=== PATIENT | female | born 1980 | race Caucasian/White ===

== ENCOUNTER 2024-09-17 10:35 | Emergency (ER) | payer BC, SELFPAY ==
--- NOTE | ~2024-09-17 | XR_ITS ---
Clinical Indication: Status post fall PA and lateral views of the chest: Comparison: None Findings: The lungs are clear, without evidence of focal consolidation or pleural effusion. Cardiome diastinal silhouette is within normal limits. There is elevation of the distal right clavicle widenin g of the coracoclavicular distance. Impression: Clear lungs. Grade 3 right AC joint separation. Reviewed, dictated and finalized at location . Impression: Clear lungs. Grade 3 right AC joint separation.
--- NOTE | ~2024-09-17 | CT_ITS ---
History: Fall PROCEDURE: CT cervical spine without intravenous contrast. COMPARISON: None TECHNIQUE: Multiple contiguous axial images of the cervical spine were performed without the administration of i ntravenous contrast. DLP: 342 mGy-cm FINDINGS: Straightening of the normal curvature of the cervical spine is identified, likely muscular in origin. No acute fractures are present. The bilateral lung apices are unremarkable. No soft tissue abnormality is appreciated. The airway is patent. Impression: Straightening of the normal curvature of the cervical spine, likely muscular in origin. No acute fracture. Reviewed, dictated and finalized at location A. Impression: Straightening of the normal curvature of the cervical spine, likely muscular in origin. No acute fracture.
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
--- NOTE | ~2024-09-17 | XR_ITS ---
Right Shoulder Technique: AP and scapular Y views were obtained. Clinical History: Pain Findings: No fracture seen. There is elevation of the distal clavicle with marked widening of the cor acoclavicular and a coracoclavicular distances. Soft tissues are unremarkable. Impression: Grade 3 AC joint separation. No fracture seen. Reviewed, dictated and finalized at location . Impression: Grade 3 AC joint separation. No fracture seen.
--- NOTE | ~2024-09-17 | XR_ITS ---
AP view of the pelvis and AP and lateral views of the left hip Clinical history: Pain Findings: No acute fracture or dislocation is seen. Osseous alignment is anatomic. Bilateral hip and SI joint spaces are preserved. Soft tissues are unremarkable. Impression: No significant abnormality is seen. Reviewed, dictated and finalized at location . Impression: No significant abnormality is seen.
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
--- NOTE | ~2024-09-17 | CT_ITS ---
History: Fall PROCEDURE: CT head without contrast. COMPARISON: None TECHNIQUE: Axial imaging of the head performed from the skull base to the vertex without IV contrast. Sagittal a nd coronal reformations obtained. DLP: 605 mGy-cm FINDINGS: The ventricles are normal in size, shape and position. There is no mass, mass effect or midline shift. There is no abnormal extra-axial fluid collection or intracranial hemorrhage. Visualized paranasal sinuses are clear. The mastoid air cells are well aerated. No acute displaced fractures within the overlying cranium. Impression: No acute intracranial hemorrhage or suspicious mass effect. Reviewed, dictated and finalized at location A. Impression: No acute intracranial hemorrhage or suspicious mass effect.
[2024-09-17 10:40] VITALS: BP 132/85; PULSE 73; RESP 16; TEMP 36.7; O2SAT 100
[2024-09-17] MEDS: MORPHINE SULFATE (*CRX) 4 MG/ML INJ IV PUSH ×2 (11:44→13:15)
[2024-09-17] MEDS: SODIUM CHLORIDE 0.9% IV 1,000 ML 999 ML IV CONT (11:45)
--- OUTSIDE RECORDS SUMMARY | 2024-09-17 11:53 | XMS_ITS | Encounter Summary ---
Author Organization [facility] Address [address] [place] [address] Care Team Providers Care Printed Circuit Boards Beveler Name Role Phone Marguerite Erazo MD Primary Care Provider [phone] Reason for Visit * Reason Comments Med Refill Encounter Details Date Type Department Care Team ([facility] st Contact Info) Description 04/05/2024 Refill [facility] Neurology [address] [phone] Cintia Khan MD [address] [place] [address] Neuropathic pain Social History Tobacco Use Types Packs/Day Years Used Date Smoking Tobacco: Never Passive Smoke Exposure: Never Smokeless Tobacco: Never Alcohol Use Standard Drinks/Week Comments Not Currently 4 (1 standard drink = 0.6 oz pur e alcohol) WEEKLY AUDIT-C Answer Date Recorded Q1: How often do you have a drink containing alc ohol? 2-4 times a month 12/02/2022 Q2: How many drinks containi ng alcohol do you have on a typical day when you are drinking? 1 or 2 12/02/2022 Q3: How often do you have si x or more drinks on one occasion? Never 12/02/2022 PHQ-2 Answer Date Recorded Patient Health Questionnaire-2 Score 0 11/13/2022 Hunger Vital Sign Answer Date Recorded Within the past 12 months, y ou worried that your food would run out before you got the money to buy more. Never true 12/03/19 23 Within the past 12 months, t he food you bought just didn't last and you didn't have money to get more. Never true 12/02/2022 PRAPARE - Transportation Answer Date Re corded In the past 12 months, has l ack of transportation kept you from medical appointments or from getting medications? No 11/09 In the past 12 months, has l ack of transportation kept you from meetings, work, or from getting things needed for daily living? No 12/02/2022 Comments No Sex and Gender Information Value Date Recorded Sex Assigned at Not on file Legal Sex Female 9:52 PM CDT Gender Identity Female 05/09/2021 7:49 AM SEX OFFENDER TREATMENT PROFESSIONAL Sexual Orientation Not on file documented as of this encounter Plan of Treatment Upcoming Encounters Date Type Department Care Team (Late st Contact Info) Description 09/23/2024 2:00 PM CDT Follow-Up [facility] [address] [phone] Jessy George MD [address] [address] 11/24/2024 8:00 AM CDT Office Visit [facility] Neurology [address] [place] [phone] Cintia Khan MD [address] [place] [address] [address] [place] [address] documented as of this encounter Visit Diagnoses Diagnosis Neuropathic pain documented in this encounter Care Teams Printed Circuit Boards Beveler Relationship Specialty Start Date End Date Marguerite Erazo MD 300 [facility], [facility] [address] [place] [address] PCP - General Family Medicine 11/12/22 documented as of this encounter
--- OUTSIDE RECORDS SUMMARY | 2024-09-17 11:53 | XMS_ITS | Encounter Summary ---
Author Organization [facility] Address [address] [place] [address] Care Team Providers Care Mailroom Manager Name Role Phone Marguerite Erazo MD Primary Care Provider [phone] [phone] Encounter Details Date Type Department Care Team (Late st Contact Info) Description 10/09/2023 Orders Only [facility] [address] [place] [phone] Jessy George MD [address] [place] [phone] Social History Tobacco Use Types Packs/Day Years [...] CDT Gender Identity Female 05/09/2021 7:49 AM FLEET MAINTENANCE MANAGER Sexual Orientation Not on file documented as of this encounter Plan of Treatment Upcoming Encounters Date Type Department Care Team (Late st Contact Info) Description 09/23/2024 2:00 PM CDT Follow-Up [facility] [address] [phone] Jessy George MD [address] [address] 11/24/2024 8:00 AM CDT Office Visit [facility] Neurology [address] [place] [phone] Cintia Khan MD [address] [address] documented as of this encounter Visit Diagnoses Not on filedocumented in this encounter Care Teams Mailroom Manager Relationship Specialty Start Date End Date Marguerite Erazo MD 300 [facility], [facility] 100 [place] [address] PCP - General Family Medicine 11/12/22 documented as of this encounter
--- OUTSIDE RECORDS SUMMARY | 2024-09-17 11:53 | XMS_ITS | Encounter Summary ---
Author Organization [facility] al[facility]care Address [address] [place] [address] Care Team Providers Care Desizing Machine Operator Name Role Phone Marguerite Erazo MD Primary Care Provider [phone] [phone] Encounter Details Date Type Department Care Team (Late st Contact Info) Description 12/31/2017 Documentation [facility] [address] [place] [address] Elier Ramirez MD [address] [place] [address] Social History Tobacco Use Types Packs/Day Years Used Date Smoking Tobacco: Never Comments Unknown Sex and Gender Information Value Date Recorded Sex Assigned at Not on file Legal Sex Female 9:52 PM CDT Gender Identity Female 05/09/2021 7:49 AM MECHANICAL FACILITIES TECHNICIAN Sexual Orientation Not on file documented as of this encounter Plan of Treatment Upcoming Encounters Date Type Department Care Team (Late st Contact Info) Description 09/23/2024 2:00 PM CDT Follow-Up [facility] [address] [phone] Jessy George MD [address] [address] 11/24/2024 8:00 AM CDT Office Visit [facility] Medical [facility] Neurology [address] [place] [phone] Cintia Khan MD [address] [place] [address] [address] [place] [address] documented as of this encounter Visit Diagnoses Not on filedocumented in this encounter Additional Health Concerns Infection Onset Date Last Indicated Resolved Time R/O Resp Infection 08/25/2019 08/25/2019 0 11:54 AM CDT R/O COVID-19 08/25/2019 08/25/2019 08/26/2019 3:43 PM CDT R/O COVID-19 01/31/2020 01/31/2020 02/01/2020 8:06 AM MECHANICAL FACILITIES TECHNICIAN R/O COVID-19 02/17/2020 02/17/2020 02/17/2020 1:23 PM MECHANICAL FACILITIES TECHNICIAN PreProcedure Screening COVID-19 05/20/2020 1 05/20/2020 2:32 PM MECHANICAL FACILITIES TECHNICIAN PreProcedure Screening COVID-19 08/02/2020 1 08/02/2020 4:07 PM CDT PreProcedure Screening COVID-19 09/17/2020 1 09/17/2020 5:22 PM CDT R/O COVID-19 01/07/2021 01/07/2021 01/07/2021 9:21 PM CDT R/O COVID-19 01/08/2021 01/08/2021 01/08/2021 1:53 PM CDT R/O COVID-19 06/08/2021 06/08/2021 06/08/2021 7:38 PM CDT R/O COVID-19 11/12/2022 11/12/2022 11/12/2022 9:47 PM CDT documented as of this encounter Care Teams Desizing Machine Operator Relationship Specialty Start Date End Date Marguerite Erazo MD 300 [facility], [address] [place] [address] PCP - General Family Medicine 11/12/22 documented as of this encounter
--- OUTSIDE RECORDS SUMMARY | 2024-09-17 11:53 | XMS_ITS | Encounter Summary ---
Author Organization [facility] althcare Address [address] [place] [address] Care Team Providers Care Fleet Operations Manager Name Role Phone Marguerite Erazo MD Primary Care Provider [phone] Encounter Details Date Type Department Care Team ([facility] st Contact Info) Description 05/12/2024 Orders Only [facility] Medical [facility] Neurology [address] [place] [phone] Cintia Khan MD [address] [place] [address] [address] [place] [address] Neuropathic pain (Primary Dx) Social History Tobacco Use Types Packs/Day Years [...] CDT Gender Identity Female 05/09/2021 7:49 AM TREE CARE FOREMAN Sexual Orientation Not on file documented as of this encounter Plan of Treatment Upcoming Encounters Date Type Department Care Team (Late st Contact Info) Description 09/23/2024 2:00 PM CDT Follow-Up [facility] [address] [phone] Jessy George MD [address] [place] [address] 11/24/2024 8:00 AM CDT Office Visit [facility] Medical [facility] Neurology [address] [place] [phone] Cintia Khan MD [address] [place] [address] documented as of this encounter Visit Diagnoses Diagnosis Neuropathic pain- Primary documented in this encounter Care Teams Fleet Operations Manager Relationship Specialty Start Date End Date Marguerite Erazo MD 300 [facility], [facility] [address] [place] [address] PCP - General Family Medicine 11/12/22 documented as of this encounter
--- OUTSIDE RECORDS SUMMARY | 2024-09-17 11:53 | XMS_ITS | Encounter Summary ---
Author Organization [facility] al[facility]care Address [address] [place] [address] Care Team Providers Care Set Up / Operator Name Role Phone Marguerite Erazo MD Primary Care Provider [phone] Encounter Details Date Type Department Care Team ([facility] st Contact Info) Description 05/16/2023 Orders Only [facility] Medical [facility] Neurology [address] [place] [phone] Cintia Khan MD [address] [place] [address] [address] [place] [address] Neuropathic pain (Primary Dx) Social History Tobacco Use Types Packs/Day Years Used Date Smoking Tobacco: Never Passive Smoke Exposure: Never Smokeless Tobacco: Never Alcohol Use Standard Drinks/Week Comments Yes 4 (1 standard drink = 0.6 oz [...] CDT Gender Identity Female 05/09/2021 7:49 AM RETAIL PARTS PRO Sexual Orientation Not on file documented as of this encounter Plan of Treatment Upcoming Encounters Date Type Department Care Team (Late st Contact Info) Description 09/23/2024 2:00 PM CDT Follow-Up [facility] [address] [phone] Jessy George MD [address] [place] [address] 11/24/2024 8:00 AM CDT Office Visit [facility] Medical Group Neurology [address] [place] [phone] Cintia Khan MD [address] [place] [address] documented as of this encounter Visit Diagnoses Diagnosis Neuropathic pain- Primary documented in this encounter Care Teams Set Up / Operator Relationship Specialty Start Date End Date Marguerite Erazo MD 300 [facility], [facility] 100 [place] [address] PCP - General Family Medicine 11/12/22 documented as of this encounter
--- OUTSIDE RECORDS SUMMARY | 2024-09-17 11:53 | XMS_ITS | Clinical Summary ---
Author Organization [facility] Address [facility] [place] [address] Care Team Providers Care Highway Technician Name Role Phone Marguerite Erazo MD Primary Care Provider [phone] [phone] Allergies Active Allergy Reactions Criticality Noted Date Comments Povidone-Iodine Rash Medium 05/30/2021 Chlorhexidine 04/21/2023 Medications cetirizine HCl (ZYRTEC ORAL) Take 1 tablet by mouth daily Active multivit-min/iron/ folic acid/K (BARIATRIC MULTIVITAMINS ORAL) Take 1 tablet by mouth daily Active omeprazole (PriLOSEC) 20 mg capsule Take 1 capsule (20 mg total) by mouth daily Active ferrous sulfate (IRON ORAL) Take 1 tablet by mouth 2 (two) times a day Active omega 5-wuv-zml-fish oil 1,000 mg (120 mg-180 mg) capsule Take 1 capsule by mouth daily Active pregabalin (LYRICA) 25 mg capsuleIndications :Neuropathic pain Take 1 capsule (25 mg total) by mouth 3 (three) times a day 270 capsule 1 5 11/21/19 25 Active escitalopram (LEXAPRO) 10 mg tablet 5 Active scopolamine (TRANSDERM-SCOP) 1 mg over 3 days patch 3 day 5 Active Active Problems Problem Noted Date Diagnosed Date 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 After getting 325mg ASA and 40mcg sublingual NTG in EMS her chest pain went from a 10-/10. She is currently sitting in the ED with 1/10 discomfort like chest pain and no acute distress. ED: WBC 8.8, hb 12.5/ 38.4, plt 263. Na 140, K 3.7, Cr 0.9, gluc 74, Ca 9.2, AST 93, ALT 37, ALP 59, tbili 0.4. Mg 2. Phos 2.1 low. Hstrop 2.5 > 3. INR 1.2 high/ PT 13.7/ PTT 27, Ddimer 290 nl. CK 1114 elev. CKMB 8.7 elev. BNP 23 nl. EKG- NSR, HR 68, EKG rpt- NSR, early depolarization. Resp Panel neg CXR: No focal consolidation, large pleural effusion, or discernible pneumothorax. Plan Trend CK-MB and CK ECHO Stress Test Nitroglycerin PRN EKG if increased Chest Pain Cardio recs Pain: NTG PRN and Tylenol 650mg Q6 PRN Murmur, cardiac 11/13/2022 Assessment & Plan (11/13/2022 1:05 AM CDT): See chest pain PCOS (polycystic ovarian syndrome) 11/12/2022 Assessment & Plan (11/13/2022 12:56 AM CDT): Started first dose on October 22 for 10 days Began Second dose yesterday Holding home med: Provera 10mg QD Class 3 severe obesity due t o excess calories with serious comorbidity and body mass index (BMI) of 40.0 to 44.9 in adult 09/19/2020 Gastroesophageal reflux disease without esophagi tis 08/15/2020 Overview (08/15/2020): Added automatically from request for surgery [id number] Assessment & Plan (11/13/2022 1:10 AM CDT): Home Med: Prilosec 20mg QD Plan Hold Home med Start Protonix 20mg QD Class 3 severe obesity due t o excess calories without serious comorbidity with body mass index (BMI) of 40.0 to 44.9 in adult 07/13/2020 Overview (07/13/2020): Added automatically from request for surgery [id number] Dyskinesia of gallbladder 05/10/2020 Overview (05/10/2020): Added automatically from request for surgery [id number] Gallbladder problem 05/09/2020 Visit for suture removal 11/26/2019 Status post nasal septoplasty 06/05/2018 Nasal septal deviation 05/04/2018 Overview (05/04/2018): Added automatically from request for surgery [id number] Deviated septum 02/25/2018 Hypertrophy of inferior nasal turbinate 02/26/20 18 Assessment & Plan (02/25/2018 9:25 AM VETERANS SERVICE REPRESENTATIVE): Reviewed CT sinus with patient, tiny 6 mm right anterior ethmoid air cell mucous retention cyst or polyp, rest of sinuses are clear, this would not cause her headaches. Could benefit from septo/ITR to help open nasal airway, would not be able to guarantee cure of facial pain/headaches or nasal drainage. I will have her see dr ramirez to discuss. rec Atrovent as rec by dr godoy for non allergic rhinitis Immunizations Immunization Administration Dates Next Due Influenza 4VAL 3YRS+ 12/22/2019,12/18/2017 Influenza, Injectable, MDCK PF Quad 12/24/2018,1 Influenza, Recombinant Quad Pf 12/08/2020 TD Preservative Free 10/29/2010 Tdap 04/23/2019 Family History Medical History Relation Name Comments Arthritis Father Jus Heart disease Father Jus Hypertension Father Jus Stroke Father Jus Cancer Maternal Grandfather Heart disease Maternal Grandmother Hypertension Maternal Grandmother Hyperlipidemia Mother Maeve Relation Name Status Comments Father Jus Maternal Grandfather Maternal Grandmother Mother Maeve Social History Tobacco Use Types Packs/Day Years Used Date Smoking Tobacco: Never Passive Smoke Exposure: Never Smokeless Tobacco: Never Tobacco Cessation:Counseling Given: No Alcohol Use Standard Drinks/Week Comments Not Currently 0 (1 standard drink = 0.6 oz pur e alcohol) AUDIT-C Answer Date Recorded Q1: How often [...] CDT Gender Identity Female 05/09/2021 7:49 AM VETERANS SERVICE REPRESENTATIVE Sexual Orientation Not on file Last Filed Vital Signs Vital Sign Reading Time Taken Comments Blood Pressure 112/79 05/31/2024 2:50 PM CDT Pulse 46 05/31/2024 1:01 PM CDT Temperature 36.3 C (97.3 F) 05/31/2024 2:20 PM CDT Respiratory Rate 16 05/31/2024 2:50 PM CDT Oxygen Saturation 100% 05/31/2024 2:55 PM CDT Inhaled Oxygen Concentration - - Weight 108 kg (237 lb) 05/31/2024 1:01 PM CDT Height 190.5 cm (6' 3) 05/31/2024 1:01 PM CDT Body Mass Index 29.62 05/31/2024 1:01 PM CDT Plan of Treatment Upcoming Encounters Date Type Department Care Team (Late st Contact Info) Description 09/23/2024 2:00 PM CDT Follow-Up [facility] [address] [place] [address] 1 [place] [phone] Jessy George MD [address] [place] [address] 1 [place] [address] 11/24/2024 8:00 AM CDT Office Visit [facility] Medical Group Neurology 305 [facility] 103 [place] [phone] Cintia Khan MD 305 [facility] 103 [place] [address] Health Maintenance Due Date Last Done Comments CT Colonography 1978 FIT-DNA 1978 FIT 1978 FOBT 1978 Pap Smear 1978 Sigmoidoscopy 1978 MMR Vaccines (1 of 1 - Standard series) 08/07/1979 Varicella Vaccines (1 of 2 - 13+ 2-dose series) 08/07/1991 Hepatitis B Vaccines (1 of 3 - 19+ 3-dose series) 1997 Mammogram 10/05/2024 10/06/2023, 09/08, 05/11/2021, Additional history exists Influenza Vaccine (#1) 2024 , 12/12/2022, 12/14/2021, Additional history exists DTaP,Tdap,and Td Vaccines (2 - Td or Tdap) 04/23/2029 04/23/2019, 10/29/2010 Colonoscopy 05/31/2034 05/31/2024 Colorectal Cancer Screening 05/31/2034 RSV Vaccines and 60 Years or Older (1 - 1-dose 75+ series) 2053 COVID-19 Vaccine Completed 12/23/2023, 07/2022, 11/19/2021, Additional history exists AMB Pneumococcal 0-49 yrs Aged Out No longer eligible based on patient's age to complete this topic HIB Vaccines Aged Out No longer eligi ble based on patient's age to complete this topic HPV Vaccines Aged Out No longer eligi ble based on patient's age to complete this topic Hepatitis A Vaccines Aged Out No long er eligible based on patient's age to complete this topic IPV Vaccines Aged Out No longer eligi ble based on patient's age to complete this topic Meningococcal ACWY Vaccine Aged Out N o longer eligible based on patient's age to complete this topic Meningococcal B Vaccine Aged Out No l onger eligible based on patient's age to complete this topic RSV Vaccines <20 Months Aged Out No l onger eligible based on patient's age to complete this topic Medical Devices Implanted Type Area Trimmer Loader Device Identifier Shelf Expiration Date Model / Serial / Lot Reload Tri-Staple 2.0 B 60 Axt - Sna - [id number] Implanted:Qty : 1 on 09/19/2020 by Jessy George MD at [facility] N/A: Stomach [employer] [id number] 04/09/2023 SIGTRSB6 0AXT / NA / [id number] Reload Tri-Staple 2.0 B 45 Axt - Sna - [id number] Implanted:Qty : 1 on 09/19/2020 by Jessy George MD at [facility] N/A: Stomach [employer] [id number] 05/08/2023 SIGTRSB4 5AXT / NA / [id number] Reload Tri-Staple 2.0 B 60 Amt - Sna - [id number] Implanted:Qty : 1 on 09/19/2020 by Jessy George MD at [facility] N/A: Stomach [employer] COVID[employer] [id number] 04/09/2023 SIGTRSB6 0AMT / NA / [id number] Reload Tri-Staple 2.0 B 60 Amt - Sn/A - [id number] Implanted:Qty : 1 on 09/19/2020 by Jessy George MD at [facility] N/A: Stomach [employer] COVID[employer] [id number] 02/06/2022 SIGTRSB6 0AMT / N/A / [id number] Reload Tri-Staple 2.0 B 45 Amt - Sn/A - [id number] Implanted:Qty : 1 on 09/19/2020 by Jessy George MD at [facility] N/A: Stomach [employer] [id number] 01/07/2021 SIGTRSB4 5AMT / N/A / [id number] Stapler Entact Septal 3pack - Sna - [id number] Implanted:Qty : 1 on 05/28/2018 by Elier Ramirez MD at [facility] [place] and Clips Left: Nose [employer] 03/17/2021 [id number] / NA / [id number] Clip Retail Shift Manager Endo Clip 10mm - Sna - [id number] Implanted:Qty : 1 on 05/22/2020 by Anthony Shannon MD at [facility] [place] and Clips N/A: Bile Duct [employer] 09/06/2024 [id number] / NA / [id number] Clip Hemolok Med/Lg - Sna - [id number] Implanted:Qty : 1 on 09/19/2020 by Jessy George MD at [facility] [place] and Clips N/A: Abdomen WECK [id number] 07/25/2024 [id number] / NA / [id number] Procedures Procedure Name Priority Date/Time Associated Diagnosis Comments BI SCREENING BILATERAL Routine 10/06/2023 10:59 AM CDT Breast cancer screening by mammogram from Last 3 Months or Most Recently Relevant to Health Maintenance Results * Bilateral digital screening mammogram (10/06/2023 10:59 AM CDT) Anatomical Region Laterality Modality Breast Bilateral Mammography Narrative 10/06/2023 3:33 PM CDT EXAMINATION(S) PERFORMED Patient is seen for Bilateral digital screening mammogram. Study was evaluated with a computer aided detection (CAD) system. INDICATIONS Sanaz Rosario is a 43 y.o. female and is being seen for Breast cancer screening by mammogram. No known family history of breast cancer. COMPARISON TO PREVIOUS EXAMINATION(S) Compared to: 10/01/2022 Bilateral digital screening mammogram and 05/11/2021 Bilateral digital screening mammogram FINDINGS There are scattered areas of fibroglandular density. Right There is no evidence of suspicious masses, calcifications, or other abnormal findings in the right breast. Left There is no evidence of suspicious masses, calcifications, or other abnormal findings in the left breast. IMPRESSION Right breast assessment: Negative. Left breast assessment: Negative. Routine Screening Mammogram in 1 Yr is recommended for both breasts. Overall BI-RADS category: 1 - Negative us Marguerite Erazo MD IMG BI PROCEDURES Final R esult from Last 3 Months or Most Recently Relevant to Health Maintenance Insurance [employer] Advance Directives For more information, please contact: [phone] * Full Code (Latest Code Status on File) Date Activated Date Inactivated Comments 05/31/2024 12:18 PM 05/31/2024 5:01 PM * Full Code Date Activated Date Inactivated Comments 12/10/2022 7:22 AM 12/10/2022 12:28 PM * Full Code Date Activated Date Inactivated Comments 11/13/2022 1:05 AM 11/13/2022 8:34 PM * Full Code Date Activated Date Inactivated Comments 09/19/2020 12:05 PM 09/20/2020 6:21 PM * Full Code Date Activated Date Inactivated Comments 08/04/2020 7:11 AM 08/04/2020 12:[address] Relationship Specialty Start Date End Date Marguerite Erazo MD [address] [place] [address], [address] [place] [address] PCP - General Family Medicine 11/12/22
--- OUTSIDE RECORDS SUMMARY | 2024-09-17 11:53 | XMS_ITS | Clinical Summary ---
Author Organization [facility] Address [facility] [place] [address] Care Team Providers Care Photogrammetric Technician Name Role Phone JamipaulanaCaleb phillips Primary Care Provider [phone] Medications omeprazole 20 MG capsule Take 20 mg by mouth daily. Active cetirizine 10 MG tablet Take 10 mg by mouth daily. Active Active Problems No known active problems Social History Tobacco Use Types Packs/Day Years Used Date Smoking Tobacco: Never Smokeless Tobacco: Never Alcohol Use Standard Drinks/Week Comments Yes 0 (1 standard drink = 0.6 oz pur e alcohol) Comments Unknown Sex and Gender Information Value Date Recorded Sex Assigned at Not on file Legal Sex Female 8:19 AM CDT Gender Identity Not on file Sexual Orientation Not on file Last Filed Vital Signs Vital Sign Reading Time Taken Comments Blood Pressure 112/68 07/16/2021 3:01 PM CDT Pulse 61 07/16/2021 3:01 PM CDT Temperature - - Respiratory Rate - - Oxygen Saturation 99% 07/16/2021 3:01 PM CDT Inhaled Oxygen Concentration - - Weight 107.7 kg (237 lb 6.4 oz) 07/16/2021 3:01 PM CDT Height 188 cm (6' 2) 07/16/2021 3:01 PM CDT Body Mass Index 30.48 07/16/2021 3:01 PM CDT Plan of Treatment Health Maintenance Due Date Last Done Comments Cervical Cancer Screening Pa p Smear (Age 30 to 64) Every 3 Years 1978 Colorectal Cancer Screening Colonoscopy (10 Years) 1978 Annual Physical 1981 Hepatitis C 1996 Hepatitis B Vaccines (1 of 3 - 19+ 3-dose series) 1997 Cervical Cancer Screening Pa p with HPV Testing (Age 30 to 64) Every 5 Years 2008 Cervical Cancer Screening wi th HPV 2008 Mammogram Screening 2018 COVID-19 Vaccine (4 - 2023-2 5 season) 2023 11/21/2020, 05/24/2020, 05/01/2020 DTaP, Tdap and Td Vaccines ( 2 - Td or Tdap) 04/23/2029 04/23/2019, 10/29/2010 Meningococcal B Vaccine Aged Out No l onger eligible based on patient's age to complete this topic Meningococcal Vaccine Aged Out No josselyn patria eligible based on patient's age to complete this topic Pneumococcal Vaccine: Pediatrics (0 to 5 Years) and At-Risk Patients (6 to 49 Years) Aged Out No longer eligible b ased on patient's age to complete this topic RSV Immunizations Under 20 Months Aged Out No longer eligible b ased on patient's age to complete this topic Insurance Care Teams Photogrammetric Technician Relationship Specialty Start Date End Date Caleb Barrera DO [address] [place] [address] PCP - General FAMILY PRACTICE 07/16/21
--- OUTSIDE RECORDS SUMMARY | 2024-09-17 11:53 | XMS_ITS | Encounter Summary ---
Author Organization [facility] Address [address] [place] [address] Care Team Providers Care Scrap Piler Name Role Phone Marguerite Erazo MD Primary Care Provider [phone] Encounter Details Date Type Department Care Team (Late Contact Info) Description 04/11/2020 Documentation [facility] Medical [facility] General Surgery 305 [facility] [address] [place] [phone] Caleb Barrera DO [facility] 305 [facility] [address] [place] [address] Social History Tobacco Use Types Packs/Day Years Used Date Smoking Tobacco: Never Smokeless Tobacco: Never Alcohol Use Standard Drinks/Week Comments Yes 4 (1 standard drink = 0.6 oz pur e alcohol) WEEKLY AUDIT-C Answer Date Recorded Frequency of Alcohol Consumption 2-4 times a fri02/25/2018 Average Number of Drinks 1 or 2 018 Frequency of Binge Drinking Never 02/07 Comments No Sex and Gender Information Value Date Recorded Sex Assigned at Not on file Legal Sex Female 9:52 PM CDT Gender Identity Female 05/09/2021 7:49 AM WHOLESALER Sexual Orientation Not on file documented as of this encounter Plan of Treatment Upcoming Encounters Date Type Department Care Team (Late Contact Info) Description 09/23/2024 2:00 PM CDT Follow-Up [facility] Weight Loss [address] [phone] Jessy George MD [address] [place] [address] 1 [place] [address] 11/24/2024 8:00 AM CDT Office Visit [facility] Neurology 305 [facility] [address] [place] [phone] Cintia Khan MD 305 [facility] [address] [place] [address] documented as of this encounter Visit Diagnoses Not on filedocumented in this encounter Additional Health Concerns Infection Onset Date Last Indicated Resolved Time PreProcedure Screening COVID-19 05/20/2020 05/20/2020 2:32 PM WHOLESALER PreProcedure Screening COVID-19 08/02/2020 08/02/2020 4:07 PM CDT PreProcedure Screening COVID-19 09/17/2020 09/17/2020 5:22 PM CDT R/O COVID-19 01/07/2021 01/07/2021 01/07/2021 9:21 PM CDT R/O COVID-19 01/08/2021 01/08/2021 01/08/2021 1:53 PM CDT R/O COVID-19 06/08/2021 06/08/2021 06/08/2021 7:38 PM CDT R/O COVID-19 11/12/2022 11/12/2022 11/12/2022 9:47 PM CDT documented as of this encounter Care Teams Scrap Piler Relationship Specialty Start Date End Date Marguerite Erazo MD 300 [facility] [address] [place] [address] PCP - General Family Medicine 11/12/22 documented as of this encounter
--- OUTSIDE RECORDS SUMMARY | 2024-09-17 11:53 | XMS_ITS | Encounter Summary ---
Author Organization [facility] Address [address] [place] [address] Care Team Providers Care Margin Clerk Name Role Phone Marguerite Erazo MD Primary Care Provider [phone] Encounter Details Date Type Department Care Team (Late Contact Info) Description 05/03/2020 Orders Only [facility] Colorectal Surgery [address] 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 Sexual Orientation Not on file documented as of this encounter Plan of Treatment Upcoming Encounters Date Type Department Care Team (Late st Contact Info) Description 09/23/2024 2:00 PM CDT Follow-Up [facility] [address] [place] [phone] Jessy George MD [address] [address] 11/24/2024 8:00 AM CDT Office Visit [facility] Medical [facility] Neurology 305 [facility] 103 [place] [address] Cintia Khan MD 305 [facility] 103 [place] [address] documented as of this encounter Visit Diagnoses Not on filedocumented in this encounter Additional Health Concerns Infection Onset Date Last Indicated Resolved Time PreProcedure Screening COVID-19 05/20/2020 05/20/2020 2:32 PM DIGITAL MARKETING ASSISTANT PreProcedure Screening COVID-19 08/02/2020 08/02/2020 4:07 PM CDT PreProcedure Screening COVID-19 09/17/2020 09/17/2020 5:22 PM CDT R/O COVID-19 01/07/2021 01/07/2021 01/07/2021 9:21 PM CDT R/O COVID-19 01/08/2021 01/08/2021 01/08/2021 1:53 PM CDT R/O COVID-19 06/08/2021 06/08/2021 06/08/2021 7:38 PM CDT R/O COVID-19 11/12/2022 11/12/2022 11/12/2022 9:47 PM CDT documented as of this encounter Care Teams Margin Clerk Relationship Specialty Start Date End Date Marguerite Erazo MD 300 [facility] 100 [place] [address] PCP - General Family Medicine 11/12/22 documented as of this encounter
--- OUTSIDE RECORDS SUMMARY | 2024-09-17 11:53 | XMS_ITS | Encounter Summary ---
Author Organization [facility] Address [address] [place] [address] Care Team Providers Care Graduate Advisor Name Role Phone Marguerite Erazo MD Primary Care Provider [phone] Encounter Details Date Type Department Care Team ([facility] st Contact Info) Description 04/06/2024 Telephone [facility] Medical [facility] Neurology [address] [place] [phone] Cintia Khan MD [address] [place] [address] [address] [place] [address] Social History Tobacco Use Types [...] CDT Gender Identity Female 05/09/2021 7:49 AM RN SURGICAL Sexual Orientation Not on file documented as of this encounter Miscellaneous Notes * Telephone Encounter - Cassidy Valdivia CMA - 05/12/2024 5:42 PM CST Noted. SURGICAL * Telephone Encounter - Cintia Khan MD - 05/12/2024 5:02 PM CST Yes sent in SURGICAL * Telephone Encounter - Mya Irvin - 04/06/2024 12:35 PM CST Called pt and got her scheduled for a follow up on 05/24/24 at 11:40am SURGICAL * Telephone Encounter - Evette Conroy - 04/06/2024 10:15 AM CST Patient was calling about her pregablin, she said the pharmacy denied it, please follow up, thanks! Yaakovrk in [place] SURGICAL documented in this encounter Plan of Treatment Upcoming Encounters Date Type Department Care Team (Late st Contact Info) Description 09/23/2024 2:00 PM CDT Follow-Up [facility] Weight Loss [place] [address] [phone] Jessy George MD [address] [place] [address] 1 [place] [address] 11/24/2024 8:00 AM CDT Office Visit [facility] Neurology 305 [facility] 103 [place] [phone] Cintia Khan MD 305 [facility] [address] [place], [place] [phone] documented as of this encounter Visit Diagnoses Not on filedocumented in this encounter Care Teams Graduate Advisor Relationship Specialty Start Date End Date Marguerite Erazo MD 300 [facility] 100 [place] [address] PCP - General Family Medicine 11/12/22 documented as of this encounter
--- OUTSIDE RECORDS SUMMARY | 2024-09-17 11:53 | XMS_ITS | Encounter Summary ---
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 Sexual Orientation Not on file documented as of this encounter Plan of Treatment Upcoming Encounters Date Type Department Care Team (Late st Contact Info) Description 09/23/2024 2:00 PM CDT Follow-Up [facility] Weight [facility] Center [address] [phone] Jessy George MD [address] 1 [place] [address] 11/24/2024 8:00 AM CDT Office Visit [facility] Medical Group Neurology [address] [place] [phone] Cintia Khan MD [address] [place] [address] documented as of this encounter Visit Diagnoses Diagnosis Neuropathic pain- Primary documented in this encounter Care Teams Valve Steamer Relationship Specialty Start Date End Date Marguerite Erazo MD 300 [facility] 100 [place] [address] PCP - General Family Medicine 11/12/22 documented as of this encounter
--- NOTE | 2024-09-17 12:15 | ECG_ITS ---
Test Date: 2024-09-17 13:07:36 Measurements Intervals Leonard Rate: 55 P: -20 NC: 137 QRS: 64 QRSD: 101 T: 44 QT: 450 QTc: 431 Interpretive Statements SINUS BRADYCARDIA POSSIBLE RIGHT VENTRICULAR CONDUCTION DELAY [RSR (QR) IN V1/V2] No previous ECG available for comparison Electronically Signed On 09-17-2024 22:32:27 CDT by Justyn Grant M.D.
[2024-09-17 12:20] LABS: Estimated CRCL calculation 88 ml/min; Estimated Glomerular Filt Rate 60
[2024-09-17 13:25] VITALS: BP 130/84; PULSE 58; RESP 16; O2SAT 98
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
[2024-09-17 15:31] VITALS: BP 142/76; PULSE 84; RESP 16; O2SAT 99
== END 2024-09-17 15:32 | disposition home or self-care (01) ==
PROVIDERS: Emergency Provider Emergency Medicine
DX: S43.101A Unspecified dislocation of right acromioclavicular joint, initial encounter (principal); S40.211A Abrasion of right shoulder, initial encounter; S00.81XA Abrasion of other part of head, initial encounter; Z90.79 Acquired absence of other genital organ(s); Z90.722 Acquired absence of ovaries, bilateral; R00.1 Bradycardia, unspecified; R94.31 Abnormal electrocardiogram [ECG] [EKG]; V17.0XXA Pedal cycle driver injured in collision with fixed or stationary object in nontraffic accident, initial encounter; Y93.55 Activity, bike riding
CPT/HCPCS: 70450; 71046; 71260; 72125; 73030; 73140; 73502; 74177; 82948; 93005; 96361; 96374; 96376; 99284; A4565; J2270; J7030; Q9967